=== PATIENT | male | born 1930 | race Two or more races ===

== ENCOUNTER → 2017-09-02 | Outpatient (CLI) | payer MEDICARE ==
[~2017-09-02] MED LIST: ISOVUE-370 50ML VIAL IV ONE
== END | disposition home or self-care (01) ==
LOC: RAH 09:42
PROVIDERS: ATTEND Family Medicine
DX: S06.0X9A Concussion with loss of consciousness of unspecified duration, initial encounter (principal); G31.9 Degenerative disease of nervous system, unspecified; X58.XXXA Exposure to other specified factors, initial encounter; Y93.89 Activity, other specified; Y92.89 Other specified places as the place of occurrence of the external cause; Y99.8 Other external cause status
CPT/HCPCS: 70470; Q9967

== ENCOUNTER 2018-05-29 10:02 | Emergency (ER) | payer MEDICARE ==
[~2018-05-29 10:02] MED LIST changes: -ISOVUE-370 50ML VIAL IV ONE; +LORA0.5T2 PO; +PANT40TA PO; +TYL3B PO
[2018-05-29 10:30] LABS: APPEARANCE,URINE CLEAR (CLEAR); BILIRUBIN,URINE NEGATIVE (NEGATIVE); COLOR,URINE YELLOW (YELLOW); GLUCOSE, URINE (UA) NEGATIVE (NEGATIVE); KETONES,URINE NEGATIVE (NEGATIVE); LEUKOCYTE ESTERASE ,URINE NEGATIVE (NEGATIVE); NITRATE,URINE NEGATIVE (NEGATIVE); OCCULT BLOOD,URINE NEGATIVE (NEGATIVE); PROTEIN,URINE NEGATIVE (NEGATIVE); UROBILINOGEN,URINE >=8.0 mg/dL (0.2-1.0)
[2018-05-29 10:37] LABS: BACTERIA,URINE None Seen /HPF (None Seen); RBC,URINE None Seen /HPF (0-1); SQUAMOUS EPITHELIAL CELL,UR Rare /HPF (0-2); WBC,URINE None Seen /HPF (0-1)
[2018-05-29 10:37] LABS: BASOPHILS % (AUTO) 0.2 % (0.0-5.0); EOSINOPHILS % (AUTO) 0.6 % (0.0-8.0); HEMATOCRIT 27.4 % (42-54); LYMPHOCYTES % (AUTO) 11.4 % (21.0-51.0); MEAN CORPUSCULAR HEMOGLOBIN 31.5 pg (27.0-33.0); MEAN CORPUSCULAR HGB CONC 33.4 g/dL (32.0-36.0); MEAN CORPUSCULAR VOLUME 94.4 fL (79-99); MONOCYTES % (AUTO) 4.5 % (3.0-13.0); NEUTROPHILS % (AUTO) 83.3 % (40.0-77.0); NUCLEATED RED BLOOD CELLS 0.2 % (0.0-0.19); PLATELET COUNT (AUTO) 285 K/uL (130-400); RED BLOOD CELL COUNT(AUTO) 2.91 MIL/uL (4.50-6.20); RED CELL DISTRIBUTION WIDTH 23.4 % (11.0-15.5)
[2018-05-29 10:45] LABS: CREATININE 0.7 mg/dL (0.5-1.5); POTASSIUM 3.8 mmol/L (3.5-5.1)
[2018-05-29 10:49] LABS: ALBUMIN 2.8 g/dL (3.5-5.0); BILIRUBIN,TOTAL 1.4 mg/dL (0.2-1.0); TOTAL PROTEIN, SERUM 5.8 g/dL (6.0-8.3)
== END 2018-05-29 19:05 | disposition home or self-care (01) ==
LOC: EDH 10:02
DX: S70.01XA Contusion of right hip, initial encounter (principal); R53.1 Weakness; E03.9 Hypothyroidism, unspecified; Z85.46 Personal history of malignant neoplasm of prostate; W18.30XA Fall on same level, unspecified, initial encounter; Y93.89 Activity, other specified; Y92.89 Other specified places as the place of occurrence of the external cause; Y99.8 Other external cause status
CPT/HCPCS: 36415; 73700; 80053; 81001; 85025

== ENCOUNTER → 2018-07-20 | Outpatient (CLI) | payer MEDICARE ==
--- NOTE | 2018-07-20 14:04 | NUR ---
MBSS COMPLETE. Pt WITH MILD OROPHARYNGEAL DYSPHAGIA. +DEEP, NON-TRANSIENT PENETRATION FROM RESIDUE IN PYRIFORMS. LIQUID WAS EFFECTIVE IN REDUCING PYRIFORM RESIDUE AND PENETRATION. PATIENT INFORMATION: Pt IS 88 Y.O. MALE REFERRED FOR MBSS BY HIS MD. Pt IS VERY POOR HISTORIAN AND DOES NOT KNOW WHY HE IS HAVING THIS STUDY DONE. Pt DENIES ANY DIFFICULTY WITH FEEDING, CHEWING, OR SWALLOWING AND JUST STATED THAT HIS WANTS HIM TO GET THIS CHECKED OUT AND HE HAS VERY GOOD INSURANCE WHICH WILL PAY FOR THE TEST. NO FAMILY ACCOMPANIED Pt TO PROVIDE FURTHER INFORMATION. Pt WAS FIXATED ON HOW HE WAS GOING TO HAVE TO GET A TAXI HOME SINCE HIS JUST DROPPED HIM OFF. PMHX SIGNIFICANT FOR ALZHEIMER'S DEMENTIA, GI BLEED, PROSTATE CA, ANEMIA, AND HYPONATREMIA. MBSS INTERPRETATION: Pt PRESENTS WITH MILD OROPHARYNGEAL DYSPHAGIA C/B DECREASED ORAL COORDINATION, DECREASED ORAL STRENGTH AND ROM, DECREASED BOLUS PREP/MANIPULATION, DELAYED PHARYNGEAL RESPONSE TIME, DECREASED TONGUE BASE RETRACTION, DECREASED LARYNGEAL ELEVATION/EXCURSION, AND DECREASED OPENING OF UES E/B INCREASED ORAL PREP/MASTICATION TIME, PREMATURE SPILLAGE INTO THE VALLECULAE WITH SPILLOVER INTO THE PYRIFORMS, MODERATE RESIDUE IN VALLECULAE AND PYRIFORMS WITH PUREE, PUDDING, MECH SOFT, AND SOLID TEXTURES, BONY PROTRUSIONS FROM C4+ INCLUDING AT LEVEL OF UES RESULTING IN MODERATE RESIDUE IN PYRIFORMS, AND +DEEP, NON-TRANSIENT PENETRATION OF RESIDUE IN PYRIFORMS DURING SUBSEQUENT SWALLOWS. LIQUID WASH (ALTERNATING BITES/SIPS) WAS EFFECTIVE IN REDUCING RESIDUE IN VALLECULAE AND PYRIFORMS AND ELIMINATING PENETRATION. RECOMMENDATIONS: 1. MECH SOFT - CHOPPED TEXTURES 2. THIN LIQUIDS 3. USE OF THE FOLLOWING COMPENSATORY STRATEGIES WITH ALL ORAL INTAKE: - ALTERNATE BITES/SIPS - SMALL BITES/SIPS - 1 BITE/SIP PER SWALLOW - REMAIN UPRIGHT FOR 30 MINUTES FOLLOWING MEALS - LIQUID WAS FOLLOWING MEALS G-CODES SWALLOWING: [id number] - CI [id number] - CI [id number] - CI Addendum: 07/20/18 at 1418 by KRYSTIN OWENS, [facility] Amended: Links added.
== END | disposition home or self-care (01) ==
LOC: RAH 13:02
PROVIDERS: ATTEND Family Medicine
DX: R13.10 Dysphagia, unspecified (principal); R55 Syncope and collapse; R63.3 Feeding difficulties
CPT/HCPCS: G8996; G8997; G8998; 74230; 92611